=== PATIENT | female | born 1950 ===

== ENCOUNTER 2019-02-28 11:51 | Outpatient (CLI) | payer OTHER ==
[~2019-02-28] VITALS: Ht 149.9 cm; Wt 61.7 kg
[2019-02-28] MEDS ORDERED: LIPO-FLAVONOID1 EACH PO (12:39)
== END 2019-02-28 14:48 | disposition home or self-care (01) ==
LOC: OFIC 805 11:51
DX: J31.0 Chronic rhinitis (principal); H81.13 Benign paroxysmal vertigo, bilateral; H81.313 Aural vertigo, bilateral

== ENCOUNTER 2019-03-07 09:25 | Outpatient (CLI) | payer OTHER ==
[~2019-03-07] VITALS: Ht 121.9 cm; Wt 61.7 kg
[~2019-03-07 09:25] MED LIST: LIPO-FLAVONOID1 EACH PO
== END 2019-03-07 14:00 | disposition home or self-care (01) ==
LOC: OFIC 805 09:25
DX: H81.13 Benign paroxysmal vertigo, bilateral (principal); J31.0 Chronic rhinitis; H81.03 Meniere's disease, bilateral